=== PATIENT | male | born 1960 | race Caucasian/White ===

== ENCOUNTER 2022-05-31 16:45 | Outpatient (CLI) | payer OTHER, SELFPAY ==
[2022-05-31 20:40] LABS: Creatinine Urine 121.7 mg/dL
[2022-05-31 20:45] LABS: Microalbumin Creatinine Ratio 0 mg/g (0-30); Microalbumin Urine 1 mg/dL
== END 2022-05-31 16:46 | disposition home or self-care (01) ==
LOC: NFLDREF 16:46
PROVIDERS: PCP Family Medicine; Visit Provider Internal Medicine Nephrology
DX: Z00.00 Encounter for general adult medical examination without abnormal findings (principal); N18.32 Chronic kidney disease, stage 3b
CPT/HCPCS: 82043; 82570

== ENCOUNTER 2022-06-22 07:24 | Outpatient (CLI) | payer OTHER, SELFPAY ==
[2022-06-22 14:05] LABS: Iron* 72 ug/dL (49-181)
[2022-06-22 14:15] LABS: Percent Iron Saturation 21 % (20-50); Total Iron Binding Capacity 348 ug/dL (261-462)
[2022-06-22 14:37] LABS: Chloride* 104 mmol/L (96-114)
[2022-06-22 14:38] LABS: Albumin* 4.2 g/dL (3.3-5.0); Sodium* 137 mmol/L (135-149)
[2022-06-22 14:40] LABS: Cholesterol* 183 mg/dL (90-199); Creatinine* 1.9 mg/dL (0.5-1.5); Estimated Glomerular Filt Rate 39 ml/min
[2022-06-22 14:41] LABS: Alanine Aminotransferase* 14 U/L (4-50); Alkaline Phosphatase* 47 U/L (40-150); Aspartate Amino Transferase* 18 U/L (12-35); Bilirubin Total* 0.6 mg/dL (0.1-1.5); Blood Urea Nitrogen* 40 mg/dL (7-30); Carbon Dioxide* 21 mmol/L (20-32); Glucose* 105 mg/dL (60-115); Phosphorus* 4.5 mg/dL (2.5-4.5); Total Protein* 6.6 g/dL (6.0-8.3); Triglycerides* 162 mg/dL (40-149); Uric Acid* 6.2 mg/dL (2.2-8.4)
[2022-06-22 14:42] LABS: Calcium* 9.6 mg/dL (8.4-10.6); HDL Cholesterol* 44 mg/dL (>=40); LDL Cholesterol Calculated 107 mg/dL (<100)
[2022-06-22 14:55] LABS: Ferritin* 45.8 ng/mL (17.9-464.0)
[2022-06-22 15:05] LABS: PSA Screen* 0.52 ng/mL (0.10-4.00)
== END 2022-06-22 07:25 | disposition home or self-care (01) ==
PROVIDERS: PCP Family Medicine; Visit Provider Family Medicine
DX: M1A.9XX0 Chronic gout, unspecified, without tophus (tophi) (principal); Z12.5 Encounter for screening for malignant neoplasm of prostate; N18.32 Chronic kidney disease, stage 3b; Z13.6 Encounter for screening for cardiovascular disorders
CPT/HCPCS: 80053; 80061; 80069; 82728; 83540; 83550; 84153; 84550

== ENCOUNTER 2022-06-28 14:58 | Outpatient (CLI) | payer OTHER, SELFPAY ==
--- NOTE | 2022-06-28 15:00 | CRLHL7_ITS ---
For Patients: As a result of the Century Cures Act, medical imaging exams and procedure reports are released immediately into your electronic medical record. You may view this report before your referring provider. If you have questions, please contact your health care provider. INDICATION: stage 3 chronic renal failure, HTN, paroxysmal A-fib TECHNIQUE: Grayscale, color Doppler and power Doppler evaluation of the renal arteries performed. COMPARISON: None available FINDINGS: BILATERAL RENAL ARTERY DUPLEX ULTRASOUND ABDOMINAL AORTA: Peak systolic velocity = 109 cm/s. No aortic aneurysm. RIGHT KIDNEY: 9.6 cm in length. There is no hydronephrosis. Peak systolic velocity = 130 cm/second Renal artery to aortic peak systolic velocity ratio = 1.2 Resistive indices: 0.7 Renal vein = patent LEFT KIDNEY: 10.3 cm in length. There is no hydronephrosis. Indeterminate hypoechoic area medial lower pole measuring 1.9 x 1.6 x 1.8 cm. Peak systolic velocity = 251 cm/second at the distal renal artery Renal artery to aortic peak systolic velocity ratio = 2.3 Resistive indices: 0.8 Renal vein = patent IMPRESSION: Elevated peak systolic velocity distal left renal artery measuring 251 cm/second with renal artery ratio 2.3 suggesting stenosis. CTA or MRA is suggested for further evaluation. In addition, there is an indeterminate hypoechoic structure measuring 1.9 cm within the medial aspect of the left kidney lower pole which requires further evaluation with CT or MRI. Dictated by Gilson Colindres MD @ 06/29/2022 10:57:02 AM (Electronically Signed)
== END 2022-06-28 14:59 | disposition home or self-care (01) ==
LOC: US 14:59
PROVIDERS: PCP Family Medicine; Visit Provider Internal Medicine Nephrology
DX: N18.32 Chronic kidney disease, stage 3b (principal); I10 Essential (primary) hypertension; I48.0 Paroxysmal atrial fibrillation
CPT/HCPCS: 76775; 93975

== ENCOUNTER 2023-05-08 15:52 | Outpatient (CLI) | payer OTHER, SELFPAY | END 2023-05-08 15:53 | disposition home or self-care (01) | PROVIDERS: PCP Family Medicine; Visit Provider Family Medicine | DX: N18.32 Chronic kidney disease, stage 3b (principal); I10 Essential (primary) hypertension; I48.0 Paroxysmal atrial fibrillation | CPT/HCPCS: 80053; 80061; 82607; 86803 ==

== ENCOUNTER 2024-08-05 16:35 | Outpatient (CLI) | payer OTHER, SELFPAY | END 2024-08-05 16:36 | disposition home or self-care (01) | PROVIDERS: PCP Family Medicine; Visit Provider Family Medicine | DX: N18.32 Chronic kidney disease, stage 3b (principal); I10 Essential (primary) hypertension; E53.8 Deficiency of other specified B group vitamins; M1A.9XX0 Chronic gout, unspecified, without tophus (tophi); I48.91 Unspecified atrial fibrillation; Z13.6 Encounter for screening for cardiovascular disorders; Z13.1 Encounter for screening for diabetes mellitus; Z12.5 Encounter for screening for malignant neoplasm of prostate | CPT/HCPCS: 80053; 80061; 82043; 82570; 82607; G0103 ==

== ENCOUNTER 2025-09-10 14:53 | Outpatient (CLI) | payer OTHER, SELFPAY | END 2025-09-10 14:54 | disposition home or self-care (01) | LOC: NFLDREF 09-14 16:31 | PROVIDERS: PCP Family Medicine; Referring Provider Family Medicine; Visit Provider Family Medicine | DX: Z00.00 Encounter for general adult medical examination without abnormal findings (principal); I48.0 Paroxysmal atrial fibrillation; E53.8 Deficiency of other specified B group vitamins; N18.32 Chronic kidney disease, stage 3b; I12.9 Hypertensive chronic kidney disease with stage 1 through stage 4 chronic kidney disease, or unspecified chronic kidney disease | CPT/HCPCS: 80053; 80061; 82043; 82570; 82607; G0103 ==